=== PATIENT | female | born 1955 | race Caucasian/White ===

== ENCOUNTER 2021-10-01 12:02 | Emergency (ER) | payer OTHER, SELFPAY ==
--- NOTE | ~2021-10-01 | XR_ITS ---
EXAMINATION: XR chest 2V DATE: 10/01/2021 13:19 INDICATION: Cough. TECHNIQUE: Frontal and lateral views of the chest were obtained. COMPARISON: CT abdomen and pelvis 08/04/2011 FINDINGS: There is mild scarring at the lung apices. No pleural effusion or pneumothorax. The heart s ize is normal. There is a suture anchor in right humeral head. IMPRESSION: 1. Mild scarring at the lung apices. Reviewed, dictated and finalized at location A. [employer]
[2021-10-01 12:25] VITALS: BP 112/65; PULSE 103; RESP 18; TEMP 36.9; O2SAT 99
--- NOTE | 2021-10-01 13:13 | ED.URI ---
HPI - URI/Sore Throat General Chief Complaint: Upper Respiratory Infection Stated Complaint: Congestion,Cough,Body Aches Time Seen by Provider: 10/01/21 13:00 Source: patient, RN notes reviewed and old records reviewed Mode of arrival: ambulatory Limitations: no limitations History of Present Illness HPI Narrative: 65-year-old female presents to the [facility] with complaints of low-grade temperature (100.3), chills, congestion and a headache since Friday, 3 days. Patient states he is Covid vaccinated and flu vaccinated. Has a history of diabetes, autoimmune disorder and a stroke in 2007. Has taken Robitussin and ibuprofen for symptoms. Related Data Home Medications Medication Instructions Recorded Confirmed acyclovir 10/20/19 bupropion HCl PO 10/20/19 clopidogrel 10/20/19 ibandronate mg PO 10/20/19 metformin mg 10/20/19 Allergies Allergy/AdvReac Type Severity Reaction Status Date / Time Sulfa (Sulfonamide Allergy Intermediate MAKES ME Verified 10/01/21 19:46 Antibiotics) SICK Review of Systems Constitutional: Constitutional: Reports as per HPI, Reports chills and Reports fever(s) Eyes: Eyes: Reports no additional eye complaints ENT: Reports as per HPI and Reports nasal congestion Cardiovascular: Cardiovascular: Denies chest pain Respiratory: Respiratory: Reports as per HPI, Reports chest congestion, Denies cough and Denies dyspnea Gastrointestinal: Gastrointestinal: Denies abdominal pain, Denies nausea and Denies vomiting Musculoskeletal: Musculoskeletal: Reports as per HPI, Denies back pain and Reports myalgias Integumentary/Breasts: Skin/Breast: Reports system reviewed and no additional complaints, except as docu Neurologic: Reports system reviewed and no additional complaints, except as documented Psychiatric: Psychiatric: Reports no additional psychiatric complaints Allergic/Immunologic: Allergic/Immunologic: Reports no additional allergic/immunologic complaints [facility] Past Medical History Medical History (Updated 10/01/21 @ 19:45 by Delmi Martínez) Autoimmune disease Diabetes mellitus type 2, controlled Stroke 2007 Surgical History Surgical History No significant past surgical history Social History Social History (Updated 10/01/21 @ 19:45 by Delmi Martínez) Living arrangements: with family Gender identity (if verbalized by the patient): Female Comments At the time of my signature, I reviewed and agree with the nursing past medical, surgical, social, and family history. There is no relevant family history pertinent to the patient complaint. Exam Const: General: no acute distress, alert and ill appearing chronically Nutritional Appearance: well nourished Orientation/consciousness: patient oriented x3 Limitations: no limitations HENMT: Head: normal to inspection Ears: external ears normal, TM's normal bilaterally and EAC's normal General nose exam: Normal external nose present Face and sinus: normal facial exam Throat: posterior oropharynx normal and no uvular edema Eyes: Pupils: Equal, round and reactive pupils present Neck: Neck: normal visual inspection, no lymphadenopathy and no meningeal signs Chest: Chest palpation & inspection: normal inspection of the chest Resp: Effort & Inspection: normal respiratory effort and no use of accessory muscles Auscultation: clear to auscultation bilaterally, no crackles, no rales, no rhonchi and no wheezes Cardio: Rate: regular rate Rhythm: regular rhythm Back/Spine/Pelvis: Back: no CVA tenderness Skin: General skin exam: normal color Rashes: no rashes Wounds: no wounds Neuro: General: patient oriented x3, moves all extremities, no meningeal signs and no focal motor deficits Speech: normal speech Gait exam (Neuro): Normal gait present Extrem: General: normal to inspection Psych: Appearance: grossly normal and well kempt Mental Status: mental status grossly norm
[2021-10-03 03:58] LABS: SARS-CoV-2 RNA PCR Positive
== END 2021-10-01 13:53 | disposition home or self-care (01) ==
PROVIDERS: Emergency Provider Nurse Practitioner; PCP Internal Medicine
DX: U07.1 COVID-19 (principal); J40 Bronchitis, not specified as acute or chronic; E11.9 Type 2 diabetes mellitus without complications; Z86.73 Personal history of transient ischemic attack (TIA), and cerebral infarction without residual deficits
CPT/HCPCS: 71046; 87804; 99213; C9803; G0463; U0003; U0005

== ENCOUNTER 2021-10-04 11:33 | Outpatient (RCR) | payer OTHER, SELFPAY ==
[2021-10-04 15:14] VITALS: BP 117/50; PULSE 80; RESP 18; TEMP 36.2; O2SAT 98
[2021-10-04] MEDS: diphenhydrAMINE HCl CAP 25 MG CAPSULE PO (15:19)
[2021-10-04] MEDS: ACETAMINOPHEN 325 MG TABLET 650 MG PO (15:19)
[2021-10-04] MEDS: FAMOTIDINE 20 MG TABLET PO (15:19)
[2021-10-04 16:25] VITALS: BP 117/58
== END 2021-10-04 17:03 ==
LOC: AMCINF 11:33
PROVIDERS: Visit Provider Internal Medicine Hematology & Oncology
DX: U07.1 COVID-19 (principal); E11.9 Type 2 diabetes mellitus without complications
CPT/HCPCS: A9270; M0243; Q0244